=== PATIENT | male | born 1970 | race Caucasian/White ===

== ENCOUNTER 2021-07-16 13:56 | Emergency (ER) | payer OTHER, BC, SELFPAY ==
[2021-07-16 13:56] VITALS: BP 154/99; PULSE 66; RESP 18; TEMP 36.6; O2SAT 96; BMI 35.1
--- NOTE | 2021-07-16 14:03 | CT_ITS ---
STUDY: CT BRAIN WITHOUT CONTRAST REASON FOR EXAM: Male, 50 years old. Pain injury RADIATION DOSAGE (If Supplied By Facility): CTDIvol = ( 44.99 ) mGy, DLP = ( 812.98 ) mGycm TECHNIQUE: Transaxial CT imaging of the brain was performed without administration of intravenous contrast material. Individualized dose optimization techniques were used for this CT. COMPARISON: No relevant priors. FINDINGS: Minimal soft tissue swelling overlying the right parietal bone. Normal calvarium. Normal size ventricles and extra-axial spaces for the patient''s age. Normal white matter tracts of the cerebral hemispheres. Normal basal ganglia and thalami. Normal brainstem. Normal cerebellum. There is no intracranial hemorrhage. There are no findings of an acute ischemic infarction. Normal visualized paranasal sinuses. CT/Brain/Head without Contrast IMPRESSION: Normal unenhanced CT scan of the brain. Electronically Signed: Souleymane Brown MD at 15:36 EST , Service support ,
--- NOTE | 2021-07-16 17:06 | EX.ED.DYSGE1 ---
HPI History of Present Illness Chief Complaint: Head Injury Informant: patient Onset/Context/Timing Onset: Today Current Severity: Mild Maximum Severity: Mild Narrative Narrative: Patient presents secondary to head injury. He states he was on an extension ladder and had placed a drill along the upper run. As he was climbing down it fell and struck him on the top of the head. He was not knocked to the ground. He states he was dazed for a few seconds. He is not on blood thinners. He denies neck pain. Last tetanus update was 2 years ago. [facility] Medical History (Updated 07/16/21 @ 17:[address] Ernestine Rodriguez MD) Sarcoidosis Thyroid disease Allergy/AdvReac Type Severity Reaction Status Date / Time codeine Allergy Vomiting Verified 07/16/21 13:58 topiramate [From Topamax] Allergy Other Verified 07/16/21 13:58 ROS ROS ED Constitutional Constitutional ED: Denies chills or fever(s) Eyes Eyes: Denies change in vision ENT ENT ED: Denies sore throat Cardiovascular Cardiovascular: Denies chest pain Respiratory/Chest Respiratory/Chest: Denies cough or dyspnea Gastrointestinal Gastrointestinal: Denies abdominal pain, nausea or vomiting Musculoskeletal Musculoskeletal: Denies back pain or neck pain Integumentary Denies rash Neurologic Neurologic: Reports headache(s); Denies paresthesias or weakness Allergic/Immunologic Allergic/Immunologic ED: Denies urticaria EXAM Physical Exam Const Vital Signs: 07/16/21 13:56 Temperature 97.9 F Temperature Source Temporal Pulse Rate 66 Respiratory Rate 18 Blood Pressure 154/99 H Blood Pressure Mean 117 Pulse Ox 96 Oxygen Delivery Method Room Air Positive well nourished and well developed General Appearance ED: well developed HEENT Reports normocephalic and head/scalp atraumatic HEENT Narrative: 2 cm long superficial abrasion right parietal scalp. Eyes PERRL and EOMs intact bilaterally Neck supple Neck Narrative: No C-spine tenderness. Chest Wall inspection of chest normal and palpation of chest normal Resp normal respiratory effort Cardio regular rate and regular rhythm GI non-tender Palpation: soft Back/Spine no CVA tenderness Extremity normal to inspection Neuro oriented x3 and no sensory deficits noted Sensorium / Orientation: alert Motor Exam: strength 5/5 throughout Psych mental status grossly normal MDM MDM MDM Narrative Medical decision making narrative: Head CT obtained. Radiography Diagnostic Testing: Clinical Impression(s) from Imaging Studies Brain CT 07/16/21 14:03 IMPRESSION: Normal unenhanced CT scan of the brain. Electronically Signed: Souleymane Brown MD at 15:36 EST , Service support , ADDENDUM: 07/16/21 1551 IMPRESSION: Normal unenhanced CT scan of the brain. Electronically Signed: Souleymane Brown MD at 15:36 EST , Service support , Treatment and Re-Evaluation Comments:: CT head is unremarkable. Wound is cleansed and sealed with Dermabond. Tetanus is already up-to-date. Patient will follow up with [facility] in the next 3 to 5 days. Return instructions provided. Discharge Plan Triage Chief Complaint: Head Injury ED Provider: Ernestine Rodriguez Dx/Rx/DC Orders Clinical Impression: CHI (closed head injury), Abrasion of scalp Instructions: ED Abrasion, ED Head Injury (Adult) Referrals: [facility]GROUP OF PHYSICIANS] - 3-5 Days Disposition Disposition: Home, Self Care
== END 2021-07-16 17:27 | disposition home or self-care (01) ==
LOC: ED 17:14
PROVIDERS: Emergency Provider Emergency Medicine; PCP Family Medicine
DX: S00.01XA Abrasion of scalp, initial encounter (principal); W20.8XXA Other cause of strike by thrown, projected or falling object, initial encounter; Y93.89 Activity, other specified; Y92.89 Other specified places as the place of occurrence of the external cause; Y99.0 Civilian activity done for income or pay
CPT/HCPCS: 70450; 99282

== ENCOUNTER → 2021-07-20 10:44 | Outpatient (CLI) | payer OTHER, BC, SELFPAY ==
--- NOTE | 2021-07-20 10:46 | RAD_ITS ---
STUDY: X-RAY - CERVICAL SPINE REASON FOR EXAM: Male, 50 years old. neck pain following closed head injury -- workers comp TECHNIQUE: 7 view(s) of the cervical spine were obtained. COMPARISON: None FINDINGS: Normal anterior atlantoaxial articulation. Normal odontoid process. Normal cervical lordosis. No subluxation on the flexion or extension views to suggest instability. Normal vertebral bodies and endplates. Normal disc space heights. Normal visualized intervertebral neuroforamina. The soft tissue structures are unremarkable. RAD/Cerv Spine Obl/Flex/Ext Comp IMPRESSION: Normal x-ray examination of the visualized cervical spine. Electronically Signed: Dylan Eagle MD at 12:14 EST Tel , Service support ,
== END ==
PROVIDERS: PCP Family Medicine; Referring Provider Nurse Practitioner Family; Visit Provider Nurse Practitioner Family
DX: M54.2 Cervicalgia (principal); S00.01XA Abrasion of scalp, initial encounter
CPT/HCPCS: 72052